=== PATIENT | male | born 1950 | race Caucasian/White ===

== ENCOUNTER → 2018-03-21 | Outpatient (CLI) | payer MEDICARE, OTHER | LOC: LAB.O 09:51 | PROVIDERS: ATTEND Nurse Practitioner Family | DX: T67.0XXA Heatstroke and sunstroke, initial encounter (principal) ==

== ENCOUNTER → 2018-03-22 | Outpatient (CLI) | payer MEDICARE, OTHER ==
--- NOTE | 2018-03-22 16:38 | US ---
EXAM DESCRIPTION: Venous,Lower Extremity LT CLINICAL HISTORY: OTHER VENOUS EMBOLISM AND THROMBOSIS COMPARISON: None Available. TECHNIQUE: Left lower extremity venous duplex FINDINGS: Doppler evaluation of the left lower extremity deep veins was performed. Normal color flow is seen in the common femoral, superficial femoral, profunda femoral and greater saphenous veins. Normal flow is seen in the popliteal vein and veins below the knee in the calf. Normal venous compressibility and flow augmentation. IMPRESSION: Negative for evidence of deep venous thrombosis on left lower extremity venous Doppler sonogram. Electronically signed by: Rakesh Mcginnis MD 03/22/2018 4:37 PM CDT
== END ==
LOC: US 15:47
PROVIDERS: ATTEND Nurse Practitioner Family
DX: I82.409 Acute embolism and thrombosis of unspecified deep veins of unspecified lower extremity (principal); I73.9 Peripheral vascular disease, unspecified

== ENCOUNTER 2018-12-04 11:08 | Emergency (ER) | payer MEDICARE, OTHER ==
--- NOTE | 2018-12-04 11:17 | ED.PDOC ---
History of Present Illness - General Chief Complaint: Post Op Problems Stated Complaint: leg pains Time Seen by Provider: 12/04/18 11:17 Source: patient, family - Exam Limitations: no limitations - History of Present Illness Initial Comments: Clayton Bates 68 y/o male with history of bilateral PAD and had recent right aorto femoral angioplasty and stent 29 Nov 2018 brought by to ER with bilateral leg pain. Timing/Duration: 4-6 hours Severity: moderate Improving Factors: nothing Worsening Factors: movement Associated Symptoms: denies symptoms, other - see hpi Allergies/Adverse Reactions: Allergies NO KNOWN ALLERGY Allergy (Verified 12/04/18 11:14) Home Medications: Ambulatory Orders Amlodipine Besylate 5 mg PO DAILY 12/04/18 Atorvastatin Calcium [Lipitor] 20 mg PO DAILY 12/04/18 Clopidogrel Bisulfate 75 mg PO DAILY 12/04/18 Lisinopril [Prinivil] 20 mg PO BEDTIME 12/04/18 Metoprolol Succinate [Metoprolol Succinate ER] 50 mg PO DAILY 12/04/18 Review of Systems - Review of Systems EENTM: States: no symptoms reported Respiratory: States: no symptoms reported Cardiology: States: no symptoms reported, chest pain Genitourinary: States: no symptoms reported Musculoskeletal: States: no symptoms reported Skin: States: no symptoms reported Neurological: States: no symptoms reported Hematologic/Lymphatic: States: see HPI, other - PAD Family Medical History - Family History Mother Family History: No Known Living Status: Unknown Physical Exam - Physical Exam General Appearance: Alert, Comfortable Eye Exam: bilateral normal Ears, Nose, Throat: normal ENT inspection, other - decreased hearing Neck: non-tender, supple, normal inspection Respiratory: chest non-tender, lungs clear, normal breath sounds Cardiovascular/Chest: no gallop, no murmur, tachycardia Peripheral Pulses: radial,right: 2+, radial,left: 2+, dorsalis pedis,right: 0, dorsalis pedis,left: 0, posterior tibialis,right: 0, posterior tibialis,left: 0 Gastrointestinal/Abdominal: non tender, soft Back Exam: no CVA tenderness, no vertebral tenderness Extremity: calf tenderness, pedal edema Neurologic: alert, oriented x 3 Skin Exam: normal color, warm/dry, other - erythema with drainage surgical site right groin Progress - Progress Progress: 12/04/18 14:13 Vital Signs - 8 hr 12/04/18 12/04/18 12/04/18 11:08 11:11 11:20 Temperature 100.8 F H Pulse Rate [ 113 H 139 H Left Radial] Respiratory 34 H 18 18 Rate Blood Pressure 108/88 108/88 [Left Arm] O2 Sat by Pulse 78 L 95 Oximetry 12/04/18 13:08 Temperature Pulse Rate [ 113 H Left Radial] Respiratory 18 Rate Blood Pressure 96/53 [Left Arm] O2 Sat by Pulse 96 Oximetry - Results/Orders Results/Orders: 12/04/18 11:30 EKG STAT 12/04/18 12:05 CARDIAC PANEL,ER Stat HEPATIC FUNCTION PANEL Stat 12/04/18 12:55 Vancomycin HCl Inj 1,000 mg Sodium Chloride 0.9% 250Ml [NS 250ml] 250 ml IVPB ONCE 12/04/18 13:00 Heparin Premix [Heparin/D5w 25,000U/500ML] 25,000 units Premix Bag 1 bag IVS PRN 12/04/18 13:20 WOUND CULTURE Stat Laboratory Results - last 24 hr 12/04/18 12/04/18 12/04/18 12:05 12:05 12:05 WBC 12.4 H RBC 3.00 L Hgb 9.2 L Hct 27.0 L MCV 90.0 MCH 30.6 MCHC 33.9 RDW 13.7 Plt Count 299 MPV 8.8 Absolute Neuts (auto) 11.50 H Absolute Lymphs (auto) 0.10 L Absolute Monos (auto) 0.60 Absolute Eos (auto) 0.00 Absolute Basos (auto) 0.10 Neutrophils % 92.9 H Lymphocytes % 1.1 L Monocytes % 5.0 Eosinophils % 0.1 L Basophils % 0.9 D-Dimer, Quantitative 4.86 H* pCO2 pO2 HCO3 ABG pH ABG O2 Saturation ABG Base Excess ABG Deoxyhemoglobin Oxyhemoglobin % Carboxyhemoglobin % Methemoglobin % Sat Calc Total Hemoglobin Sodium 130 L Potassium 3.7 Chloride 99 L Carbon Dioxide 20 L Anion Gap 14.7 BUN 39 H Creatinine 1.51 H BUN/Creatinine Ratio 25.8 H Random Glucose 117 H Serum Osmolality 271.2 L Lactic Acid 1.9 Calcium 8.6 Magnesium 1.7 L Total Bilirubin 0.9 Direct Bilirubin 0.1 Indirect Bilirubin 0.8 AST 20 ALT 14 Alkaline Phosphatase 77 Creatine Kinase 110 CK-MB (CK-2) 1.8 CK-MB (CK-2) % Not Reportable Troponin I 0.02 Serum Total Protein 7.1 Albumin 3.5 12/04/18 13:00 WBC RBC Hgb Hct MCV MCH MCHC RDW Plt Count MPV Absolute Neuts (auto) Absolute Lymphs (auto) Absolute Monos (auto) Absolute Eos (auto) Absolute Basos (auto) Neutrophils % Lymphocytes % Monocytes % Eosinophils % Basophils % D-Dimer, Quantitative pCO2 23 L pO2 139 H* HCO3 16.4 ABG pH 7.470 H ABG O2 Saturation 100.0 H ABG Base Excess -6.1 ABG Deoxyhemoglobin 0.0 Oxyhemoglobin % 98.0 Carboxyhemoglobin % 0.4 L Methemoglobin % Sat 1.6 H Calc Total Hemoglobin 8.5 L Sodium Potassium Chloride Carbon Dioxide Anion Gap BUN Creatinine BUN/Creatinine Ratio Random Glucose Serum Osmolality Lactic Acid Calcium Magnesium Total Bilirubin Direct Bilirubin Indirect Bilirubin AST ALT Alkaline Phosphatase Creatine Kinase CK-MB (CK-2) CK-MB (CK-2) % Troponin I Serum Total Protein Albumin - EKG/XRAY/CT EKG: Sinus, Tachy, no ST T wave changes Comments: hr-120 XRAY: chest - no acute abnormalities Xray Comments: Arterial Doppler-arterial occlusion femoral artery left mid/distal segment Departure - Departure Clinical Impression: Femoral artery occlusion, left, Peripheral artery occlusion, Localized swelling of both lower extremities, Incisional infection, Elevated d-dimer, Renal insufficiency Time of Disposition: 14:39 Disposition: Transfer to Hospital Condition: Fair Departure Forms: Patient Portal Self Enrollment Referrals: GARRETT CRUZ IV, DIGITAL PRODUCER [Primary Care Provider] - 1-2 Weeks Home Medications: Ambulatory Orders Amlodipine Besylate 5 mg PO DAILY 12/04/18 Atorvastatin Calcium [Lipitor] 20 mg PO DAILY 12/04/18 Clopidogrel Bisulfate 75 mg PO DAILY 12/04/18 Lisinopril [Prinivil] 20 mg PO BEDTIME 12/04/18 Metoprolol Succinate [Metoprolol Succinate ER] 50 mg PO DAILY 12/04/18 Transfer to Outside Facility - Transfer Information Accepting Provider:: Dr. Keller Accepting Facility: [facility] Reason for Transfer: required specialist not available - vascular surgeon
--- NOTE | 2018-12-04 11:52 | RAD ---
EXAM DESCRIPTION: Chest,1 View CLINICAL HISTORY: sob COMPARISON: CT the chest dated February TECHNIQUE: AP portable chest FINDINGS: The lungs are clear. There is no infiltrate or effusion. The heart is normal size. IMPRESSION: Normal portable chest Electronically signed by: Colby Hylton MD 12/04/2018 11:50 AM [facility] [employer]ER
[2018-12-04] MEDS ORDERED: VANCOMYCIN HCL INJ 1,000 MG in SODIUM CHLORIDE 0.9% 250ML 250 ML IVPB ONE (12:55)
[2018-12-04] MEDS ORDERED: HEPARIN PREMIX 25,000 UNITS in PREMIX BAG 1 BAG IVS SCH (13:00)
[2018-12-04] MEDS ORDERED: VANCOMYCIN HCL INJ 1,000 MG VIAL IVPB ONE (13:02)
[2018-12-04] MEDS ORDERED: HEPARIN PREMIX 500 ML ONE (13:03)
[2018-12-04] MEDS ORDERED: SODIUM CHLORIDE 0.9% 250ML 250 ML ONE (13:03)
--- NOTE | 2018-12-04 13:47 | US ---
EXAM DESCRIPTION: Extremity,Lower RT Arteries (accession [id number]), Extremity,Lower LT Arteries (accession [id number]): Ultrasound. CLINICAL HISTORY: Lower extremity pain and claudication. COMPARISON: Bilateral lower extremity duplex ultrasound evaluation of the deep venous systems. TECHNIQUE: Doppler evaluation of the bilateral lower extremity arterial flow waveforms and velocities. FINDINGS: Arterial waveforms in the right lower extremity are monophasic in the right common femoral artery and right deep femoral artery. Decreased monophasic in the proximal right femoral artery. No flow in the mid and distal right femoral artery. Monophasic flow in the right popliteal artery, peroneal artery, PROJECT PRODUCTION ENGINEER, and DPA with decreased velocities. Arterial waveforms in the left lower extremity are triphasic in the left MANUFACTURING ENGINEER. Monophasic in the left DFA and proximal left femoral artery. No flow in the left femoral artery mid and distal segments. Monophasic flow in the left popliteal artery, left peroneal artery, and left posterior tibial artery. Dampened monophasic flow in the left DPA.. Comments: No flow in the left mid and distal femoral artery and significantly diminished flow in the left DPA. Decreased flow and diminished waveforms from the mid right femoral artery to the right ankle.. IMPRESSION: 1. Complete stenosis of the mid and distal right femoral artery with reconstitution of the right popliteal artery by collaterals. Significant atherosclerotic occlusive disease also in the proximal to mid right calf arterial system., Also including the right DPA 2. Complete stenosis of the mid and distal left femoral artery with reconstitution of the left popliteal artery by collaterals. Significant atherosclerotic occlusive disease in the distal left calf arterial system, especially left DPA. Electronically signed by: Keith Barker MD 12/04/2018 1:45 PM [facility]
--- NOTE | 2018-12-04 13:47 | US ---
EXAM DESCRIPTION: Extremity,Lower RT Arteries (accession [id number]), Extremity,Lower LT Arteries (accession [id number]): Ultrasound. CLINICAL HISTORY: Lower extremity pain and claudication. COMPARISON: Bilateral lower extremity duplex ultrasound evaluation of the deep venous systems. TECHNIQUE: Doppler evaluation of the bilateral lower extremity arterial flow waveforms and velocities. FINDINGS: Arterial waveforms in the right lower extremity are monophasic in the right common femoral artery and right deep femoral artery. Decreased monophasic in the proximal right femoral artery. No flow in the mid and distal right femoral artery. Monophasic flow in the right popliteal artery, peroneal artery, IT PROGRAMMER, and DPA with decreased velocities. Arterial waveforms in the left lower extremity are triphasic in the left ECONOMICS DEPARTMENT CHAIR. Monophasic in the left DFA and proximal left femoral artery. No flow in the left femoral artery mid and distal segments. Monophasic flow in the left popliteal artery, left peroneal artery, and left posterior tibial artery. Dampened monophasic flow in the left DPA.. Comments: No flow in the left mid and distal femoral artery and significantly diminished flow in the left DPA. Decreased flow and diminished waveforms from the mid right femoral artery to the right ankle.. IMPRESSION: 1. Complete stenosis of the mid and distal right femoral artery with reconstitution of the right popliteal artery by collaterals. Significant atherosclerotic occlusive disease also in the proximal to mid right calf arterial system., Also including the right DPA 2. Complete stenosis of the mid and distal left femoral artery with reconstitution of the left popliteal artery by collaterals. Significant atherosclerotic occlusive disease in the distal left calf arterial system, especially left DPA. Electronically signed by: Keith Barker MD 12/04/2018 1:[address] [facility]
--- NOTE | 2018-12-04 13:50 | US ---
EXAM DESCRIPTION: Venous,Lower Extremity RT (accession [id number]), Venous,Lower Extremity LT (accession [id number]): Ultrasound. CLINICAL HISTORY: pain bilateral lower extremities with swelling. COMPARISON: Bilateral Doppler ultrasound evaluation of the lower extremity arterial systems on the same visit. TECHNIQUE: Two -dimensional and doppler sonographic evaluation of the deep venous system of the bilateral lower extremities. FINDINGS: Doppler evaluation shows normal color flow and normal phasicity and augmentation of the bilateral common femoral veins, femoral veins, popliteal veins, greater saphenous vein, and peroneal veins, Posterior tibial veins. These veins showed normal occlusion with transducer pressure. Two-dimensional survey showed no echogenic clot within these veins. Minimal subcutaneous edema. IMPRESSION: Duplex ultrasound evaluation of the bilateral lower extremity deep venous systems showing no evidence of thrombosis. Minimal subcutaneous edema. Electronically signed by: Keith Barker MD 12/04/2018 1:48 PM CLINICAL LABORATORY TECHNICIAN
--- NOTE | 2018-12-04 13:50 | US ---
EXAM DESCRIPTION: Venous,Lower Extremity RT (accession [id number]), Venous,Lower Extremity LT (accession [id number]): Ultrasound. CLINICAL HISTORY: pain bilateral lower extremities with swelling. COMPARISON: Bilateral Doppler ultrasound evaluation of the lower extremity arterial systems on the same visit. TECHNIQUE: Two -dimensional and doppler sonographic evaluation of the deep venous system of the bilateral lower extremities. FINDINGS: Doppler evaluation shows normal color flow and normal phasicity and augmentation of the bilateral common femoral veins, femoral veins, popliteal veins, greater saphenous vein, and peroneal veins, Posterior tibial veins. These veins showed normal occlusion with transducer pressure. Two-dimensional survey showed no echogenic clot within these veins. Minimal subcutaneous edema. IMPRESSION: Duplex ultrasound evaluation of the bilateral lower extremity deep venous systems showing no evidence of thrombosis. Minimal subcutaneous edema. Electronically signed by: Keith Barker MD 12/04/2018 1:48 PM ALLIED HEALTH INSTRUCTOR
[2018-12-04] MEDS ORDERED: HYDROmorphone HCL INJ 2 MG/ML VIAL IV ONE (14:12)
[2018-12-04] MEDS ORDERED: ACETAMINOPHEN 325 MG TAB ONE (14:26)
[2018-12-04] MEDS ORDERED: ACETAMINOPHEN 325 MG TAB PO ONE (14:26)
[2018-12-04 15:18] VITALS: BP 89/60
[2018-12-04 16:22] VITALS: TEMP 100.3; O2SAT 98
== END 2018-12-04 15:30 | disposition short-term general hospital (02) ==
LOC: ER 11:08
DX: I70.202 Unspecified atherosclerosis of native arteries of extremities, left leg (principal); T81.49XA Infection following a procedure, other surgical site, initial encounter; L08.9 Local infection of the skin and subcutaneous tissue, unspecified; R79.89 Other specified abnormal findings of blood chemistry; N28.9 Disorder of kidney and ureter, unspecified; I73.9 Peripheral vascular disease, unspecified; Z79.899 Other long term (current) drug therapy
CPT/HCPCS: 36600; 71045; 80048; 80076; 82550; 82553; 82803; 82805; 83605; 84484; 85025; 85379; 85610; 85730; 87070; 87077; 87205; 93005; 93926; 93971; J1170; J1644; J3370; J7050